=== PATIENT | female | born 1985 ===

== ENCOUNTER 2020-11-17 07:48 | Inpatient (IN) | payer OTHER ==
[2020-11-17] MEDS ORDERED: Sodium Chloride 0.9% 10 ML SDV IV PRN (08:30)
[2020-11-17] MEDS ORDERED: Citric Acid/Sodium Citrate Solution 30 ML Cup PO ONE (08:30)
[2020-11-17] MEDS ORDERED: ceFAZolin 2 GM in Premix Bag 1 BAG IV ONE (08:30)
[2020-11-17] MEDS ORDERED: Sodium Chloride 0.9% 10 ML Syringe FLUSH PRN (08:30)
[2020-11-17] MEDS ORDERED: Sodium Chloride 0.9% 2.5 ML Syringe FLUSH PRN (08:30)
[2020-11-17] MEDS ORDERED: Oxytocin/0.9 % Sodium Chloride 30 UNIT/500 ML BAG IV SCH (08:30)
[2020-11-17] MEDS: Lactated Ringers 1,000 ML IV SCH ×2 (08:55→09:41)
--- NOTE | 2020-11-17 09:57 | PCM.LDHP ---
L&D History of Present Illness - General Date of Service: 11/17/20 Admit Problem/Dx: Patient Status Order with Admit Dx/Problem 11/17/20 08:11 Patient Status [ADT] Routine 11/17/20 08:30 Patient Status [ADT] Routine Admission Diagnosis/Problem Admission Diagnosis/Problem Planned Source of Information: Patient History Limitations: Reports: No Limitations - History of Present Illness Introduction:: Patient presents with leakage of clear fluid vaginally at approximately 6 am this morning. Denies regular contractions. No vaginal bleeding. Notes good movement. 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 L&D Exam - Exam Exam: See Below - Vital Signs Weight: 104.326 kg - OB Specific Contraction Intensity: Irritability Movement: Active Heart Tones: Present Heart Tones per Min: 130 Heart Rate (FHR) Variability: Moderate (6-25 bmp) - Exam General: Alert, Oriented Lungs: Normal Respiratory Effort Cardiovascular: Regular Rate, Regular Rhythm GI/Abdominal Exam: Soft, Non-Tender. No: Rebound, Tender Back Exam: No: CVA Tenderness (L), CVA Tenderness (R) Extremities: Pedal Edema (1+). No: Brian's Sign Skin: Warm, Dry, Intact Neurological: Reflexes Equal Bilateral Psychiatric: Alert, Normal Affect, Normal Mood - Patient Data Lab Results Last 24 hrs: Laboratory Results - last 24 hr 11/17/20 11/17/20 Range/Units 07:55 08:39 WBC 9.86 (4.0-11.0) K/uL RBC 4.13 L (4.30-5.90) M/uL Hgb 12.2 (12.0-16.0) g/dL Hct 35.7 L (36.0-46.0) % MCV 86.4 (80.0-98.0) fL MCH 29.5 (27.0-32.0) pg MCHC 34.2 (31.0-37.0) g/dL RDW Std Deviation 45.4 (28.0-62.0) fl RDW Coeff of Roseanne 15 (11.0-15.0) % Plt Count 325 (150-400) K/uL MPV 9.60 (7.40-12.00) fL Nucleated RBC % 0.0 /100WBC Nucleated RBCs # 0 K/uL Membrane Rupture POSITIVE Result Diagrams: 11/17/20 08:39 - Problem List (1) Spontaneous rupture of amniotic membranes SNOMED Code(s): 527392891 ICD Code: YRM0360 - Status: Acute Current Visit: Yes (2) Previous section SNOMED Code(s): 111288268 ICD Code: Z98.891 - HISTORY OF UTERINE SCAR FROM PREVIOUS SURGERY Status: Acute Current Visit: Yes Problem List Initiated/Reviewed/Updated: Yes Orders Last 24hrs: Active Orders 24 hr Category Date Time Status Patient Status [ADT] Routine ADT 11/17/20 08:11 Active Patient Status [ADT] Routine ADT 11/17/20 08:30 Active Non Stress Test [RC] PER UNIT ROUTINE Care 11/17/20 08:11 Active Non Stress Test [RC] PER UNIT ROUTINE Care 11/17/20 08:30 Active Notify Provider Vital Signs [RC] PRN Care 11/17/20 08:32 Active Procedure Site Prep Instruct [RC] ASDIRECTED Care 11/17/20 08:30 Active Up ad Teresa [RC] ASDIRECTED Care 11/17/20 08:11 Active Up ad Teresa [RC] ASDIRECTED Care 11/17/20 08:30 Active Vaginal Exam [RC] Click to Edit Care 11/17/20 08:11 Active Verify Patient Consent Obtain [RC] ASDIRECTED Care 11/17/20 08:30 Active Vital Signs [RC] PER UNIT ROUTINE Care 11/17/20 08:11 Active Vital Signs [RC] PER UNIT ROUTINE Care 11/17/20 08:30 Active CORONAVIRUS COVID-19 BRYAN [MOLEC] Routine Lab 11/17/20 08:20 Ordered GROUP B STREP BY PCR [MOLEC] Routine Lab 11/17/20 08:30 Received RPR (SYPHILIS SERO) W/ RFLX [REF] Routine Lab 11/17/20 08:39 Received TYPE AND SCREEN [BBK] Routine Lab 11/17/20 08:39 Received Lactated Ringers [Ringers, Lactated] 1,000 ml Med 11/17/20 08:30 Active IV BOLUS Oxytocin/0.9 % Sodium Chloride [Oxytocin 30 Unit/500 ML Med 11/17/20 08:30 Active -NS] 30 unit in 500 ml IV TITRATE Sodium Chloride 0.9% [Normal Saline] Med 11/17/20 08:30 Active 10 ml IV ASDIRECTED PRN Sodium Chloride 0.9% [Saline Flush] Med 11/17/20 08:30 Active 10 ml FLUSH ASDIRECTED PRN Sodium Chloride 0.9% [Saline Flush] Med 11/17/20 08:30 Active 2.5 ml FLUSH ASDIRECTED PRN Peripheral IV Insertion Adult [OM.PC] Routine Oth 11/17/20 08:30 Ordered Schedule Procedure [COMM] Per Unit Routine Oth 11/17/20 08:30 Ordered Resuscitation Status Routine Resus Stat 11/17/20 08:11 Ordered Medication Orders Lactated Ringer's (Ringers, Lactated) 1,000 mls @ 500 mls/hr IV BOLUS ZAINAB Last Admin: 11/17/20 09:41 Dose: 999 mls/hr Documented by: Infusion: 11/17/20 09:41 Dose: 999 mls/hr Documented by: Admin: 11/17/20 08:55 Dose: 999 mls/hr Documented by: [email or web address] Oxytocin/Sodium Chloride (Oxytocin 30 Unit/500 Ml-Ns) 30 unit in 500 mls @ 250 mls/hr IV TITRATE ZAINAB Sodium Chloride (Sodium Chloride 0.9% 10 Ml Syringe) 10 ml FLUSH ASDIRECTED PRN PRN Reason: Keep Vein Open Sodium Chloride (Sodium Chloride 0.9% 2.5 Ml Syringe) 2.5 ml FLUSH ASDIRECTED PRN PRN Reason: Keep Vein Open Sodium Chloride (Sodium Chloride 0.9% 10 Ml Sdv) 10 ml IV ASDIRECTED PRN PRN Reason: IV Use Assessment/Plan Comment:: 36/3 week IUP rupture of membranes Previous c section, desires repeat GBBS unknown Amnisure is positive. Proceed with repeat c section. Risks of procedure discussed including infection, bleeding, possible trauma to bowel/bladder/ureter and in cases of excessive blood loss, risk of transfusion. Risk of hysterectomy in life saving circumstances discussed. Risk of anesthesia and risk of thromboembolic event discussed. Patient agrees to proceed and proper consents obtained. Anesthesia/OR notified as well as calciner feeder.
[2020-11-17] MEDS ORDERED: Octyl 2-Cyanoacrylate 1 Tube ONE (09:58)
[2020-11-17] MEDS ORDERED: Lanolin 100% Cream 7 GM Tube TOP PRN (11:26)
[2020-11-17] MEDS ORDERED: diphenhydrAMINE 50 MG/ML SDV IVPUSH PRN (11:26)
[2020-11-17] MEDS ORDERED: Misoprostol 200 MCG Tab RECTAL PRN (11:26)
[2020-11-17] MEDS ORDERED: Oxytocin 10 Units/1 ML SDV IM PRN (11:26)
[2020-11-17] MEDS ORDERED: Tranexamic Acid 1,000 MG in Sodium Chloride 0.9% 100 ML IV PRN (11:26)
[2020-11-17] MEDS ORDERED: Methylergonovine 0.2 MG/1 ML Amp IM PRN (11:26)
[2020-11-17] MEDS ORDERED: Bisacodyl 10 MG Supp RECTAL PRN (11:26)
[2020-11-17] MEDS ORDERED: Lactated Ringers 1,000 ML IV SCH (11:30)
--- NOTE | 2020-11-17 11:35 | PCM.OPNOTE ---
- General Post-Op/Procedure Note Date of Surgery/Procedure: 11/17/20 Operative Procedure(s): Repeat LTCS Findings: Viable female AGPARs 8, 9 weight 2860 gm. Intact placenta with 2 vessel cord. Clear amniotic fluid. Pre Op Diagnosis: 36/3 week IUP. rupture of membranes. Previous c section, desires repeat Post-Op Diagnosis: Same Anesthesia Technique: Spinal Primary Surgeon: Negra Briones Threading Machine Setter: Harley Ortiz Fluid Replacement, Intraop: 1,500 EBL in mLs: 500 Complications: none known Condition: Good Free Text/Narrative:: [id number]
[2020-11-17] MEDS: Ondansetron 4 MG/2 ML SDV IVPUSH PRN ×2 (11:49→15:35)
[2020-11-17] MEDS: Ketorolac 30 MG/ML SDV IVPUSH SCH ×2 (15:50→17:56)
[2020-11-17] MEDS ORDERED: Promethazine 25 MG/ML SDV IM ONE (16:24)
[2020-11-17] MEDS: Simethicone 80 MG Tab.Chew PO SCH ×2 (17:58)
[2020-11-18] MEDS: Ketorolac 30 MG/ML SDV IVPUSH SCH ×3 (00:08→11:45)
[2020-11-18] MEDS: Simethicone 80 MG Tab.Chew PO SCH ×4 (00:09→20:15)
[2020-11-18] MEDS: Docusate Sodium 100 MG Cap PO SCH ×3 (00:09→20:35)
--- NOTE | 2020-11-18 03:32 | OR ---
SURGEON: Negra Briones M.D. DATE OF PROCEDURE: 11/17/2020 PREOPERATIVE DIAGNOSES: 1. 36 and 3 weeks' intrauterine . 2. rupture of membranes. 3. Previous section, desires repeat. POSTOPERATIVE DIAGNOSES: 1. 36 and 3 weeks' intrauterine . 2. rupture of membranes. 3. Previous section, desires repeat. PROCEDURE: Repeat low-transverse section. PRIMARY SURGEON: Negra Briones M.D. POST HOLE DIGGER: MD Nicholas ANESTHESIA: Spinal. ESTIMATED BLOOD LOSS: 500 mL. FLUIDS: 1500 mL of crystalloid. COMPLICATIONS: None known. FINDINGS: Viable female. scores 8 at one minute and 9 at five minutes. Weight is 2860 g. Delivery of intact placenta, 2-vessel cord. Clear amniotic fluid. DISPOSITION: The patient to PACU. Infant to nursery, stable. PROCEDURE DETAILS: Jennie is a 35-year-old, G2, P0-1-0-1 at 36 and 3 weeks' gestational age, who presents on the morning of 11/17/2020 with leakage of fluid since 6 a.m. AmniSure is positive. Clear fluid was returned. Group B strep is unknown. Therefore, she was admitted. Routine labs were drawn. IV hydration was initiated. She was opting to proceed with repeat delivery. Risks of procedure have been discussed with her. Proper consent obtained. The patient was taken to the operating room where she underwent spinal anesthetic, was placed in dorsal supine position with leftward tilt. SCDs to lower extremities. Leal to gravity. Was prepped and draped in the usual sterile fashion. Time-out was performed. Anesthesia was tested and found to be adequate. Previous Pfannenstiel scar was now excised. Subcutaneous tissue was incised down to the level of the rectus fascia, lateralized on either side sharply and bluntly. Superior aspect of fascia was tented upward, dissected sharply and bluntly away from the underlying muscle. In similar aspect, this was performed on the inferior aspect of the fascia. Rectus muscle was in the midline. Peritoneum was entered. Rectus muscles and peritoneum were now lateralized bluntly. Uterine position and position palpated. There was a mesenteric anterior uterine adhesion that was reducing visibility. Therefore, this was lysed gently with cautery. The visibility was now more ideal and self-retaining retractor was gently placed. Uterovesical reflection was visualized. Bladder flap was created sharply and bluntly. Bladder was mobilized away from the lower uterine segment. Low-transverse hysterotomy was now performed. Uterine cavity was entered with blunt-ended scalpel, lateralized bluntly. Clear fluid was returned. Head flexed. Fundal pressure applied. Head delivered followed by anterior shoulder, posterior shoulder, and remainder of the body without difficulty. Loose nuchal cord x1 was reduced manually. The 's oropharynx and nares were bulb suctioned. After delay, the cord was clamped x2 and cut. Infant was handed off to attending meat manager. Cord arterial, cord venous, cord blood sampling obtained. The placenta was now delivered. Uterine cavity was cleared of all clot and debris. Hysterotomy repaired using 0 Vicryl in a continuous running locked fashion followed by re-imbricating the area, it is very thin along the midline of lower uterine segment. This was re-plicated with a [id number] suture. Uterus remained firm. No defects or hematomas found to be forming. Region was well irrigated, suction dried. The self-retaining retractor was gently removed. Anterior Patricia and bladder blade were placed. Hysterotomy was inspected, found to be hemostatic. The pelvis was once again copiously irrigated and suction dried. The rectus muscle and peritoneum were now reapproximated using 0 Vicryl in inverted mattress suture technique. Anterior aspect of the muscle, posterior aspect of the fascia closely inspected. Any areas of oozing were cauterized. The rectus fascia was reapproximated using 0 Vicryl in continuous running fashion beginning laterally on either side, meeting in the midline. Subcutaneous tissue was well irrigated, suction dried. Any areas of oozing were cauterized. Skin edges were reapproximated using 4-0 Vicryl on a Srinivasa needle in a subcuticular fashion followed by half-inch Steri-Strips and Mastisol. Sponge, instrument, and needle counts were correct x2. The patient tolerated the procedure well overall. She will go to PACU in stable condition. Specimen to Pathology. JENNIFER / JIHAN /[id number] ELIZABETH
--- NOTE | 2020-11-18 08:40 | PCM.PNPP ---
- General Info Date of Service: 11/18/20 Functional Status: Reports: Pain Controlled, Tolerating Diet, Ambulating - Review of Systems General: Reports: Fatigue. Denies: Fever, Weakness Pulmonary: Denies: Shortness of Breath Cardiovascular: Denies: Chest Pain, Palpitations, Lightheadedness Gastrointestinal: Denies: Abdominal Pain, Nausea, Vomiting Genitourinary: Denies: Flank Pain Musculoskeletal: Reports: No Symptoms Skin: Reports: No Symptoms Neurological: Reports: No Symptoms Psychiatric: Reports: No Symptoms - General Info Date of Service: 11/18/20 - Patient Data Vital Signs - Most Recent: Last Vital Signs Temp 36.5 C 11/18/20 07:50 Pulse 81 11/18/20 08:00 Resp 16 11/18/20 08:00 BP 117/76 11/18/20 07:50 Pulse Ox 97 11/18/20 08:00 Weight - Most Recent: 104.326 kg I&O - Last 24 Hours: Intake & Output 11/17/20 11/18/20 11/18/20 22:59 06:59 14:59 Output Total 950 2000 Balance -950 -2000 Lab Results - Last 24 Hours: Laboratory Results - last 24 hr 11/17/20 11/17/20 11/17/20 Range/Units 08:20 08:39 08:39 WBC 9.86 (4.0-11.0) K/uL RBC 4.13 L (4.30-5.90) M/uL Hgb 12.2 (12.0-16.0) g/dL Hct 35.7 L (36.0-46.0) % MCV 86.4 (80.0-98.0) fL MCH 29.5 (27.0-32.0) pg MCHC 34.2 (31.0-37.0) g/dL RDW Std Deviation 45.4 (28.0-62.0) fl RDW Coeff of Roseanne 15 (11.0-15.0) % Plt Count 325 (150-400) K/uL MPV 9.60 (7.40-12.00) fL Nucleated RBC % 0.0 /100WBC Nucleated RBCs # 0 K/uL Cord ABG pH (7.18-7.38) Cord ABG Base Excess (-10--2) Cord VBG pH (7.25-7.45) Cord VBG Base Excess (-10--2) SARS-CoV-2 RNA (BRYAN) NEGATIVE (NEGATIVE) Blood Type O POSITIVE Antibody Screen NEGATIVE 11/17/20 11/18/20 Range/Units 10:37 06:15 WBC (4.0-11.0) K/uL RBC (4.30-5.90) M/uL Hgb 10.0 L (12.0-16.0) g/dL Hct 30.0 L (36.0-46.0) % MCV (80.0-98.0) fL MCH (27.0-32.0) pg MCHC (31.0-37.0) g/dL RDW Std Deviation (28.0-62.0) fl RDW Coeff of Roseanne (11.0-15.0) % Plt Count (150-400) K/uL MPV (7.40-12.00) fL Nucleated RBC % /100WBC Nucleated RBCs # K/uL Cord ABG pH 7.263 (7.18-7.38) Cord ABG Base Excess -2 (-10--2) Cord VBG pH 7.302 (7.25-7.45) Cord VBG Base Excess -2 (-10--2) SARS-CoV-2 RNA (BRYAN) (NEGATIVE) Blood Type Antibody Screen Med Orders - Current: Current Medications Bisacodyl (Bisacodyl 10 Mg Supp) 10 mg RECTAL ONETIME PRN PRN Reason: Constipation Diphenhydramine HCl (Diphenhydramine 50 Mg/Ml Sdv) 25 mg IVPUSH Q6H PRN PRN Reason: Itching or Nausea Docusate Sodium (Docusate Sodium 100 Mg Cap) 100 mg PO BID [facility] Last Admin: 11/18/20 08:09 Dose: 100 mg Documented by: Emollient Ointment (Lanolin 100% Cream 7 Gm Tube) 0 gm TOP ASDIRECTED PRN PRN Reason: Sore Nipples Lactated Ringer's (Ringers, Lactated) 1,000 mls @ 500 mls/hr IV BOLUS [facility] Last Admin: 11/17/20 09:41 Dose: 999 mls/hr Documented by: Oxytocin/Sodium Chloride (Oxytocin 30 Unit/500 Ml-Ns) 30 unit in 500 mls @ 250 mls/hr IV TITRATE [facility] Lactated Ringer's (Ringers, Lactated) 1,000 mls @ 125 mls/hr IV ASDIRECTED [facility] Last Admin: 11/17/20 15:59 Dose: 125 mls/hr Documented by: Tranexamic Acid 1,000 mg/ (Sodium Chloride) 110 mls @ 660 mls/hr IV ONETIME PRN PRN Reason: Bleeding Ibuprofen (Ibuprofen 800 Mg Tab) 800 mg PO Q8H PRN PRN Reason: mild pain or fever Ketorolac Tromethamine (Ketorolac 30 Mg/Ml Sdv) 30 mg IVPUSH Q6H [facility] Stop: 11/18/20 11:31 Last Admin: 11/18/20 05:57 Dose: 30 mg Documented by: Methylergonovine Maleate (Methylergonovine 0.2 Mg/1 Ml Amp) 0.2 mg IM ONETIME PRN PRN Reason: Excessive Vaginal Bleeding Misoprostol (Misoprostol 200 Mcg Tab) 1,000 mcg RECTAL ONETIME PRN PRN Reason: excessive bleeding Ondansetron HCl (Ondansetron 4 Mg/2 Ml Sdv) 4 mg IVPUSH Q4H PRN PRN Reason: Nausea/Vomiting Last Admin: 11/17/20 15:35 Dose: 4 mg Documented by: Oxycodone/Acetaminophen (Acetaminophen/Oxycodone 325-5 Mg Tab) 1 tab PO Q4H PRN PRN Reason: Pain (severe 7-10) Oxycodone/Acetaminophen (Acetaminophen/Oxycodone 325-5 Mg Tab) 2 tab PO Q4H PRN PRN Reason: Pain (severe 7-10) Oxytocin (Oxytocin 10 Units/1 Ml Sdv) 10 unit IM ASDIRECTED PRN PRN Reason: Excessive Vaginal Bleeding Simethicone (Simethicone 80 Mg Tab.Chew) 160 mg PO QID [facility] Last Admin: 11/18/20 05:58 Dose: 160 mg Documented by: Sodium Chloride (Sodium Chloride 0.9% 10 Ml Syringe) 10 ml FLUSH ASDIRECTED PRN PRN Reason: Keep Vein Open Sodium Chloride (Sodium Chloride 0.9% 2.5 Ml Syringe) 2.5 ml FLUSH ASDIRECTED PRN PRN Reason: Keep Vein Open Sodium Chloride (Sodium Chloride 0.9% 10 Ml Sdv) 10 ml IV ASDIRECTED PRN PRN Reason: IV Use Discontinued Medications Citric Acid/Sodium Citrate (Citric Acid/Sodium Citrate Solution 30 Ml Cup) 30 ml PO ONETIME ONE Stop: 11/17/20 08:31 Last Admin: 11/17/20 19:57 Dose: Not Given Documented by: Cefazolin Sodium/Dextrose 2 gm (/ Premix) 50 mls @ 100 mls/hr IV ONETIME ONE Stop: 11/17/20 08:59 Last Admin: 11/17/20 19:56 Dose: Not Given Documented by: Octyl Cyanoacrylate (Octyl 2-Cyanoacrylate 1 Tube) Confirm Administered Dose 1 applic .ROUTE .STK-MED ONE Stop: 11/17/20 09:59 Last Admin: 11/17/20 19:57 Dose: Not Given Documented by: Promethazine HCl (Promethazine 25 Mg/Ml Sdv) 12.5 mg IM ONETIME ONE Stop: 11/17/20 16:25 Last Admin: 11/17/20 16:34 Dose: 12.5 mg Documented by: - Infant Interaction Support Person: - Recovery Exam Fundal Tone: Firm Fundal Level: 1 Fingerbreadths Below Umbilicus Fundal Placement: Midline Lochia Amount: Scant Lochia Color: Rubra/Red Perineum Description: Intact, Minimal Bruising/Swelling Episiotomy/Laceration: None Bladder Status: Voiding Urinary Elimination: Other (see below) Other Urinary Elimination, : due to void - Exam General: Alert, Oriented Lungs: Normal Respiratory Effort Cardiovascular: Regular Rate, Regular Rhythm GI/Abdominal Exam: Normal Bowel Sounds, Soft Extremities: Pedal Edema (trace). No: Brian's Sign Skin: Warm, Dry, Intact Wound/Incisions: Dressing Dry and Intact Neurological: No New Focal Deficit Psy/Mental Status: Alert, Normal Affect, Normal Mood - Problem List & Annotations (1) Spontaneous rupture of amniotic membranes SNOMED Code(s): 073895336 Code(s): YJP6329 - Status: Acute Current Visit: Yes (2) Previous section SNOMED Code(s): 738736273 Code(s): Z98.891 - HISTORY OF UTERINE SCAR FROM PREVIOUS SURGERY Status: Acute Current Visit: Yes - Problem List Review Problem List Initiated/Reviewed/Updated: Yes - My Orders Last 24 Hours: My Active Orders 11/17/20 08:11 Patient Status [ADT] Routine Up ad Teresa [RC] ASDIRECTED Vital Signs [RC] PER UNIT ROUTINE Resuscitation Status Routine 11/17/20 08:30 Patient Status [ADT] Routine Procedure Site Prep Instruct [RC] ASDIRECTED Up ad Teresa [RC] ASDIRECTED Verify Patient Consent Obtain [RC] ASDIRECTED Vital Signs [RC] PER UNIT ROUTINE GROUP B STREP BY PCR [MOLEC] Routine Lactated Ringers [Ringers, Lactated] 1,000 ml IV BOLUS Oxytocin/0.9 % Sodium Chloride [Oxytocin 30 Unit/500 ML-NS] 30 unit in 500 ml IV TITRATE Sodium Chloride 0.9% [Normal Saline] 10 ml IV ASDIRECTED PRN Sodium Chloride 0.9% [Saline Flush] 10 ml FLUSH ASDIRECTED PRN Sodium Chloride 0.9% [Saline Flush] 2.5 ml FLUSH ASDIRECTED PRN Peripheral IV Insertion Adult [OM.PC] Routine Schedule Procedure [COMM] Per Unit Routine 11/17/20 08:32 Notify Provider Vital Signs [RC] PRN 11/17/20 08:39 RPR (SYPHILIS SERO) W/ RFLX [REF] Routine 11/17/20 Lunch Regular Diet [DIET] 11/17/20 11:26 Notify Provider Intake and Out [RC] ASDIRECTED Notify Provider Vital Signs [RC] ASDIRECTED Acetaminophen/oxyCODONE [Percocet 325-5 MG] 1 tab PO Q4H PRN Acetaminophen/oxyCODONE [Percocet 325-5 MG] 2 tab PO Q4H PRN Lanolin [Lansinoh HPA] See Dose Instructions TOP ASDIRECTED PRN Methylergonovine [Methergine] 0.2 mg IM ONETIME PRN Ondansetron [Zofran] 4 mg IVPUSH Q4H PRN Oxytocin [Pitocin] 10 unit IM ASDIRECTED PRN Tranexamic Acid [Cyklokapron] 1,000 mg Sodium Chloride 0.9% [Normal Saline] 100 ml IV ONETIME bisacodyL [Dulcolax] 10 mg RECTAL ONETIME PRN diphenhydrAMINE [Benadryl] 25 mg IVPUSH Q6H PRN miSOPROStoL [Cytotec] 1,000 mcg RECTAL ONETIME PRN Abdominal Binder [OM.PC] Routine Heat Therapy [OM.PC] Routine Ice Therapy [OM.PC] Routine 11/17/20 11:27 Patient Status [ADT] Routine Ambulate [RC] PER UNIT ROUTINE Antiembolic Devices [RC] PER UNIT ROUTINE Communication Order [RC] PER UNIT ROUTINE Communication Order [RC] PER UNIT ROUTINE Communication Order [RC] Per Unit Routine May Shower [RC] ASDIRECTED RT Incentive Spirometry [RC] Q2HWA Vital Signs [RC] PER UNIT ROUTINE Assess Lochia [WOMSER] Per Unit Routine Assess Uterine Involution [WOMSER] Per Unit Routine Breast Pump [WOMSER] Per Unit Routine Peripheral IV Discontinue [OM.PC] Routine Sequential Compression Device [OM.PC] Per Unit Routine 11/17/20 11:28 Cooling Warming Measures [RC] ASDIRECTED 11/17/20 11:30 Ketorolac [Toradol] 30 mg IVPUSH Q6H Lactated Ringers [Ringers, Lactated] 1,000 ml IV ASDIRECTED 11/17/20 12:00 Simethicone 160 mg PO QID 11/17/20 21:00 Docusate Sodium [Colace] 100 mg PO BID 11/18/20 17:30 Ibuprofen [Motrin] 800 mg PO Q8H PRN - Assessment Assessment:: POD 1 status post repeat c section - Plan Plan:: Continue postoperative/ cares. Labs and VS are reassuring
[2020-11-18] MEDS: Acetaminophen/oxyCODONE 325-5 MG Tab PO PRN ×2 (14:36→22:02)
[2020-11-18] MEDS: Ibuprofen 800 MG Tab PO PRN (19:40)
[2020-11-19] MEDS: Acetaminophen/oxyCODONE 325-5 MG Tab PO PRN ×2 (04:08→12:36)
[2020-11-19] MEDS: Simethicone 80 MG Tab.Chew PO SCH ×3 (04:18→11:48)
--- NOTE | 2020-11-19 08:38 | PCM.PNPP ---
- General Info Date of Service: 11/19/20 Functional Status: Reports: Pain Controlled, Tolerating Diet, Ambulating, Urinating - Review of Systems General: Reports: Fatigue. Denies: Fever, Weakness Pulmonary: Denies: Shortness of Breath Cardiovascular: Denies: Chest Pain, Palpitations, Lightheadedness Gastrointestinal: Denies: Abdominal Pain, Nausea, Vomiting Genitourinary: Denies: Flank Pain Musculoskeletal: Reports: No Symptoms Skin: Reports: No Symptoms Neurological: Reports: No Symptoms Psychiatric: Reports: No Symptoms - General Info Date of Service: 11/19/20 - Patient Data Vital Signs - Most Recent: Last Vital Signs Temp 36.4 C 11/19/20 04:15 Pulse 76 11/19/20 04:15 Resp 14 11/19/20 04:15 BP 128/78 11/19/20 04:15 Pulse Ox 97 11/19/20 04:15 Weight - Most Recent: 104.326 kg Lab Results - Last 24 Hours: Laboratory Results - last 24 hr 11/17/20 11/17/20 Range/Units 08:30 08:39 RPR Non-Reac (Non-Reac) Group B Strep (PCR) POSITIVE H (NEGATIVE) Med Orders - Current: Current Medications Bisacodyl (Bisacodyl 10 Mg Supp) 10 mg RECTAL ONETIME PRN PRN Reason: Constipation Diphenhydramine HCl (Diphenhydramine 50 Mg/Ml Sdv) 25 mg IVPUSH Q6H PRN PRN Reason: Itching or Nausea Docusate Sodium (Docusate Sodium 100 Mg Cap) 100 mg PO BID [facility] Last Admin: 11/18/20 20:35 Dose: 100 mg Documented by: Emollient Ointment (Lanolin 100% Cream 7 Gm Tube) 0 gm TOP ASDIRECTED PRN PRN Reason: Sore Nipples Lactated Ringer's (Ringers, Lactated) 1,000 mls @ 500 mls/hr IV BOLUS [facility] Last Admin: 11/17/20 09:41 Dose: 999 mls/hr Documented by: Oxytocin/Sodium Chloride (Oxytocin 30 Unit/500 Ml-Ns) 30 unit in 500 mls @ 250 mls/hr IV TITRATE ZAINAB Lactated Ringer's (Ringers, Lactated) 1,000 mls @ 125 mls/hr IV ASDIRECTED [facility] Last Admin: 11/17/20 15:59 Dose: 125 mls/hr Documented by: Tranexamic Acid 1,000 mg/ (Sodium Chloride) 110 mls @ 660 mls/hr IV ONETIME PRN PRN Reason: Bleeding Ibuprofen (Ibuprofen 800 Mg Tab) 800 mg PO Q8H PRN PRN Reason: mild pain or fever Last Admin: 11/18/20 19:40 Dose: 800 mg Documented by: Methylergonovine Maleate (Methylergonovine 0.2 Mg/1 Ml Amp) 0.2 mg IM ONETIME PRN PRN Reason: Excessive Vaginal Bleeding Misoprostol (Misoprostol 200 Mcg Tab) 1,000 mcg RECTAL ONETIME PRN PRN Reason: excessive bleeding Ondansetron HCl (Ondansetron 4 Mg/2 Ml Sdv) 4 mg IVPUSH Q4H PRN PRN Reason: Nausea/Vomiting Last Admin: 11/17/20 15:35 Dose: 4 mg Documented by: Oxycodone/Acetaminophen (Acetaminophen/Oxycodone 325-5 Mg Tab) 1 tab PO Q4H PRN PRN Reason: Pain (severe 7-10) Last Admin: 11/18/20 22:02 Dose: 1 tab Documented by: Oxycodone/Acetaminophen (Acetaminophen/Oxycodone 325-5 Mg Tab) 2 tab PO Q4H PRN PRN Reason: Pain (severe 7-10) Last Admin: 11/19/20 04:08 Dose: 2 tab Documented by: Oxytocin (Oxytocin 10 Units/1 Ml Sdv) 10 unit IM ASDIRECTED PRN PRN Reason: Excessive Vaginal Bleeding Simethicone (Simethicone 80 Mg Tab.Chew) 160 mg PO QID [facility] Last Admin: 11/19/20 05:34 Dose: 160 mg Documented by: Sodium Chloride (Sodium Chloride 0.9% 10 Ml Syringe) 10 ml FLUSH ASDIRECTED PRN PRN Reason: Keep Vein Open Sodium Chloride (Sodium Chloride 0.9% 2.5 Ml Syringe) 2.5 ml FLUSH ASDIRECTED PRN PRN Reason: Keep Vein Open Sodium Chloride (Sodium Chloride 0.9% 10 Ml Sdv) 10 ml IV ASDIRECTED PRN PRN Reason: IV Use Discontinued Medications Citric Acid/Sodium Citrate (Citric Acid/Sodium Citrate Solution 30 Ml Cup) 30 ml PO ONETIME ONE Stop: 11/17/20 08:31 Last Admin: 11/17/20 19:57 Dose: Not Given Documented by: Cefazolin Sodium/Dextrose 2 gm (/ Premix) 50 mls @ 100 mls/hr IV ONETIME ONE Stop: 11/17/20 08:59 Last Admin: 11/17/20 19:56 Dose: Not Given Documented by: Ketorolac Tromethamine (Ketorolac 30 Mg/Ml Sdv) 30 mg IVPUSH Q6H ZAINAB Stop: 11/18/20 11:31 Last Admin: 11/18/20 11:45 Dose: 30 mg Documented by: Octyl Cyanoacrylate (Octyl 2-Cyanoacrylate 1 Tube) Confirm Administered Dose 1 applic .ROUTE .STK-MED ONE Stop: 11/17/20 09:59 Last Admin: 11/17/20 19:57 Dose: Not Given Documented by: Promethazine HCl (Promethazine 25 Mg/Ml Sdv) 12.5 mg IM ONETIME ONE Stop: 11/17/20 16:25 Last Admin: 11/17/20 16:34 Dose: 12.5 mg Documented by: - Interaction Infant Disposition, : [place] in Room with Family Infant Interaction: Holding Infant Support Person: - Recovery Exam Fundal Tone: Firm Fundal Level: 2 Fingerbreadths Below Umbilicus Fundal Placement: Midline Lochia Amount: Scant Lochia Color: Rubra/Red Perineum Description: Intact, Minimal Bruising/Swelling Episiotomy/Laceration: None Bladder Status: Voiding Urinary Elimination: Voided Other Urinary Elimination, : due to void - Exam General: Alert, Oriented Lungs: Normal Respiratory Effort Cardiovascular: Regular Rate, Regular Rhythm GI/Abdominal Exam: Normal Bowel Sounds, Soft Extremities: Pedal Edema (1+). No: Brian's Sign Skin: Warm, Dry, Intact Wound/Incisions: Healing Well, No Drainage. No: Erythema Neurological: No New Focal Deficit Psy/Mental Status: Alert, Normal Affect, Normal Mood - Problem List & Annotations (1) Spontaneous rupture of amniotic membranes SNOMED Code(s): 396508569 Code(s): QHB2198 - Status: Acute Current Visit: Yes (2) Previous section SNOMED Code(s): 339084122 Code(s): Z98.891 - HISTORY OF UTERINE SCAR FROM PREVIOUS SURGERY Status: Acute Current Visit: Yes - Problem List Review Problem List Initiated/Reviewed/Updated: Yes - My Orders Last 24 Hours: My Active Orders 11/18/20 17:30 Ibuprofen [Motrin] 800 mg PO Q8H PRN 11/19/20 08:31 Ready for Discharge [RC] PER UNIT ROUTINE - Assessment Assessment:: Patient is doing well overall--She would like to go home today. VS are reassuring. Discharge instructions reviewed. Discharge to home today. Follow up at [facility] 2 weeks. - Plan Plan:: Continue postoperative/ cares. Labs and VS are reassuring
[2020-11-19] MEDS: Ibuprofen 800 MG Tab PO PRN (08:43)
[2020-11-19] MEDS: Docusate Sodium 100 MG Cap PO SCH (08:44)
[2020-11-19 09:44] VITALS: BP 143/83; PULSE 80
== END 2020-11-19 15:30 | disposition home or self-care (01) | DRG 788 ==
LOC: MW.OBCHECK 07:48 → MW.OB 07:49 → MW.OBCHECK 08:29 → MW.OB 08:30
PROVIDERS: ADMIT Obstetrics & Gynecology; ATTEND Obstetrics & Gynecology
PROC: 10D00Z1 Extraction of Products of Conception, Low, Open Approach (ICD-10-PCS; principal; 2020-11-17)
DX: O34.211 Maternal care for low transverse scar from previous cesarean delivery (principal); O42.013 Preterm premature rupture of membranes, onset of labor within 24 hours of rupture, third trimester; Z20.822 Contact with and (suspected) exposure to COVID-19; Z3A.36 36 weeks gestation of pregnancy; Z37.0 Single live birth
CPT/HCPCS: 36415; 51702; 59025; 82803; 84112; 85014; 85018; 85027; 86592; 86850; 86900; 86901; 87653; A9270-GY; J1885; J2405; J2550; J7120; U0002